=== PATIENT | male | born 1995 | race Caucasian/White ===

== ENCOUNTER 2016-12-19 16:55 | Emergency (ER) | payer BC ==
[2016-12-19 17:06] VITALS: O2SAT 98
[2016-12-19] MEDS ORDERED: Sodium Chloride 0.9% 1000 ML 1,000 ML ONE (17:14)
[2016-12-19] MEDS ORDERED: Sodium Chloride 0.9% 1000 ML 1,000 ML IV SCH (17:15)
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
[2016-12-19] MEDS ORDERED: DIPRIVAN 200 MG/20 ML IV ONE (17:45)
[2016-12-19] MEDS ORDERED: Norco 10/325 MG Tablet PO ONE (18:35)
[2016-12-19] MEDS ORDERED: Norco 10/325 MG Tablet ONE (18:38)
[2016-12-19 18:53] VITALS: BP 145/82; PULSE 74
--- NOTE | 2016-12-20 08:32 | XRAY ---
Indication: Follow-up shoulder reduction for dislocation. Comparison: Taken earlier in the day. 2 views of the right shoulder demonstrates successful reduction of the previous humeral head dislocation. No other bony, articular, or soft tissue abnormalities.
--- NOTE | 2016-12-20 08:35 | XRAY ---
Indication: Pain following injury. Comparison: None 2 views of the right shoulder demonstrates anterior-inferior humeral head dislocation. No other bony, articular, or soft tissue abnormalities.
== END 2016-12-19 18:55 | disposition home or self-care (01) ==
LOC: ED 16:55
PROC: 0RSJXZZ Reposition Right Shoulder Joint, External Approach (ICD-10-PCS; principal; 2016-12-19)
DX: S43.034A Inferior dislocation of right humerus, initial encounter (principal); S43.014A Anterior dislocation of right humerus, initial encounter; W17.89XA Other fall from one level to another, initial encounter; Y93.11 Activity, swimming
CPT/HCPCS: 36000; 73030; 96360; 96374; 99285; J2704; L3650; A9270-GY